=== PATIENT | female | born 1990 | race Two or more races ===

== ENCOUNTER 2022-02-09 21:14 | Emergency (ER) | payer OTHER ==
[~2022-02-09] VITALS: Ht 160 cm; Wt 86.2 kg
[2022-02-09] MEDS ORDERED: SILVER SULFADIAZINE 1 % TOPICAL CREAM 50GM TOP ONE ×2 (21:30→22:58)
[2022-02-09] MEDS ORDERED: HYDROcodone-ACET 10/325MG TAB PO ONE (21:30)
[2022-02-09] MEDS ORDERED: TRAM-297 PO (22:13)
[2022-02-09 23:12] VITALS: BP 142/71
== END 2022-02-09 23:10 | disposition home or self-care (01) ==
LOC: ER 21:14
DX: T25.222A Burn of second degree of left foot, initial encounter (principal); Z79.899 Other long term (current) drug therapy; X12.XXXA Contact with other hot fluids, initial encounter; Y93.89 Activity, other specified; Y92.89 Other specified places as the place of occurrence of the external cause; Y99.0 Civilian activity done for income or pay
CPT/HCPCS: 16020

== ENCOUNTER 2024-12-29 22:55 | Emergency (ER) | payer OTHER ==
[~2024-12-29] VITALS: Ht 160 cm; Wt 68.0 kg
[~2024-12-29 22:55] MED LIST: TRAM-297 PO
[2024-12-29 23:20] LABS: Basophils # (auto) 0.1 10 ^3/uL (0-0.2); Basophils % (auto) 0.6 % (0.0-2.0); Eosinophils # (auto) 0.2 10 ^3/uL (0-0.8); Eosinophils % (auto) 1.9 % (0.0-7.0); Hematocrit 35.8 % (36.0-46.0); Lymphocytes # (auto) 3.4 10 ^3/uL (0.4-5.4); Lymphocytes % (auto) 38.6 % (10.0-50.0); Mean Corpuscular Hemoglobin 30.6 pg (28.0-32.0); Mean Corpuscular Hgb Conc. 33.7 g/dL (32.0-36.0); Mean Corpuscular Volume 90.9 fL (80.0-100.0); Monocytes # (auto) 0.8 10 ^3/uL (0-1.3); Monocytes % (auto) 9.6 % (0.0-12.0); Neutrophils # (auto) 4.3 10 ^3/uL (1.6-8.6); Neutrophils % (auto) 49.3 % (37.0-80.0); Nucleated Red Blood Cells % 0.1 %; Platelet Count (auto) 275 10^3/uL (140-450); Red Blood Cells 3.94 10^6/uL (4.0-5.20); Red Cell Distribution Width 12.3 % (11.8-14.3); White Blood Cell 8.7 10^3/uL (4.4-10.8)
--- NOTE | 2024-12-29 23:20 | ED.PDOC ---
HPI (NEURO) HPI Comments HPI: Poor Historian. 34-year-old female brought in by ambulance for evaluation of a syncopal episode and collapse. There was some minimal twitching witnessed by others without any history of seizures. Patient came back to right away and was not postictal. Patient states now heavy some mild nausea but no other acute symptoms. Past Medical History: Denies any Past Surgical History: Denies any REVIEW OF SYSTEMS: CONSTITUTIONAL: Denies acute: fever, diaphoresis, chills, HEAD: Denies acute: headache, photophobia Eyes: Denies acute: Double vision, vision loss, eye pain, eye discharge. EARS: Denies acute: tinnitus, hearing loss, ear discharge, ear pain, THROAT: Denies acute: sore throat, swelling, difficulty swallowing , pain with swallowing, change in voice. NECK: Denies acute: neck swelling, stiff neck. HEART: Denies acute : chest pain, palpitations, LUNGS: Denies acute: SOB, wheezing, cough, hemoptysis ABDOMEN: Denies acute: abdominal pain, Vomiting, diarrhea, melena , hematemesis, hematochezia SKIN: Denies acute: rash, redness, lesions, itchiness. EXTREMITIES: Denies acute: calf pain, numbness, tingling, weakness, denies pain in extremity. Denies acute: Low back pain. Neuro: Denies acute: focal neurological deficit, motor or sensory focal neurological deficit, tremors, seizure like activity, confusion, change in mental status, loss of bowel or bladder function, cauda equina like symptoms. : Denies acute: dysuria, hematuria, flank pain, increase in urinary frequency. PSYCH: Denies acute: hallucination, suicidal ideation, homicidal ideation. FEMALE: Denies acute: abnormal vaginal bleeding, foul odor, unusual discharge. PHYSICAL EXAM: General: -----no---acute distress, awake and alert. Head: normocephalic, atraumatic. Neck: supple, trachea is midline, no swelling. Cervical spine: Palpation of the posterior midline of the cervical spine reveals no focal swelling, erythema, focal tenderness to palpation. Patient has normal range of motion. Throat: Normal phonation. Eyes:, no erythema, no purulent discharge, no proptosis, no icterus. Heart: regular rate, regular rhythm, no significant murmur appreciated. Lungs: no apparent respiratory distress, Able to speak in full sentences. No wheezing, no rhonchi, no crackles. No stridors Clear to auscultation bilaterally. Abdomen: non tender to palpation, non distended, soft, no guarding, no rebound, + bowel sounds. Neuro: Awake, Alert, oriented to name, self, situation, follows commands GCS=15. Speech is normal. Skin: no petechia, no purpura, no cyanosis, non-pale, not jaundice. Lower extremities: --no - Pitting edema no deformity, no focal swelling, no calf TTP. Makes eye contact. moves all four extremities. Face: no apparent facial droop. No pronator drift. 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 No nystagmus. No nuchal rigidity, Kernig's sign, Brudzinski's sign, no meningeal signs. ED COURSE: Chief Complaint: Syncope Time Seen by MD: 22:56 Primary Care Provider: Demond CAIN Reviewed Notes: Nurses Notes, Medications, Allergies Information Source: Patient, Emergency Med Personnel Mode of Arrival: EMS Past Medical History PAST MEDICAL HISTORY: Denies Surgical History: Denies all surgeries CAGE SHIFT MANAGER History: No Pertinent CAGE SHIFT MANAGER History Family History Family History: No family hx of Cancer, No family hx of DM, No family hx of Heart tristin, No family hx of HTN, No family hx ofKidney tristin, No family hx of Liver tristin, No family hx of Lung tristin, No family hx of Stroke Social History Smoker: Non-Smoker Alcohol: Occasionally Drugs: Denies Drug Use Lives In: Home Was a procedure done? Was a procedure done?: No Differential Diagnosis (SZ) Seizure: Closed Head Injury, Syncope, Other (Seizure) General Weakness: Anemia, CVA, Dehydration, Dysrhythmia, Electrolyte imbalance, Encephalopathy, Guillain-[place], Hypoglycemia, Hypotension, Hypovolemia, Labyrinthitis, Meniere's disease, Myasthenia gravis, Myocardial infarction, Pulmonary embolus, Renal failure, Repiratory failure, TIA, VBI, Vertigo: central, Vertigo: peripheral, Vestibular neuronitis X-Ray, Labs, Meds, VS Vital Signs Date Time Temp Pulse Resp B/P (MAP) Pulse Ox O2 Delivery O2 Flow Rate FiO2 12/30/24 01:33 97.7 76 14 128/83 (98) 100 97.7 12/30/24 01:25 Room Air* 0 21 12/29/24 22:55 98.0 102 16 118/92 (101) 100 98.0 Lab Test 12/30/24 02:20 12/30/24 01:40 12/30/24 01:19 12/29/24 23:09 Range/Units Troponin I High Sensitivity < 3 L < 3 L < 3 L </=34 ng/L Urine Color Light-yellow Yellow Urine Clarity Turbid H Clear Urine pH 6.0 5.0-9.0 Urine Specific Malone 1.010 1.001-1.035 Urine Protein Negative Negative Urine Ketones Negative Negative Urine Blood 1+ H Negative /uL Urine Nitrite Negative Negative Urine Bilirubin Negative Negative Urine Urobilinogen Normal Negative mg/dL Urine Leukocyte Esterase Trace Negative /uL Urine RBC 1 0 - 4 /hpf Urine Microscopic WBC 5 0-5 /HPF Urine Squamous Epithelial Cells Few <5 /hpf Urine Bacteria Many H None Seen /hpf Urine Hyaline Casts Few 0 - 2 /lpf Urine Mucus Few None Seen Urine Glucose Normal Normal mg/dL Urine Test Negative Negative White Blood Count 8.7 4.4-10.8 10^3/uL Red Blood Count 3.94 L 4.0-5.20 10^6/uL Hemoglobin 12.0 L 12.2-16.2 g/dL Hematocrit 35.8 L 36.0-46.0 % Mean Corpuscular Volume 90.9 80.0-100.0 fL Mean Corpuscular Hemoglobin 30.6 28.0-32.0 pg Mean Corpuscular Hemoglobin Concent 33.7 32.0-36.0 g/dL Red Cell Distribution Width 12.3 11.8-14.3 % Platelet Count 275 140-450 10^3/uL Mean Platelet Volume 7.3 6.9-10.8 fL Neutrophils (%) (Auto) 49.3 37.0-80.0 % Lymphocytes (%) (Auto) 38.6 10.0-50.0 % Monocytes (%) (Auto) 9.6 0.0-12.0 % Eosinophils (%) (Auto) 1.9 0.0-7.0 % Basophils (%) (Auto) 0.6 0.0-2.0 % Neutrophils # (Auto) 4.3 1.6-8.6 10 ^3/uL Lymphocytes # (Auto) 3.4 0.4-5.4 10 ^3/uL Monocytes # (Auto) 0.8 0-1.3 10 ^3/uL Eosinophils # (Auto) 0.2 0-0.8 10 ^3/uL Basophils # (Auto) 0.1 0-0.2 10 ^3/uL Nucleated Red Blood Cells 0.1 % Sodium Level 138 136-145 mmol/L Potassium Level 3.5 3.5-5.1 mmol/L Chloride Level 105 98-107 mmol/L Carbon Dioxide Level 24 20-31 mmol/L Anion Gap 9 5-15 Blood Urea Nitrogen 11 9-23 mg/dL Creatinine 0.63 0.550-1.02 mg/dL Glomerular Filtration Rate Calc 120 >90 mL/min BUN/Creatinine Ratio 17.5 10.0-20.0 Serum Glucose 96 74-106 mg/dL Lactic Acid Level 0.9 0.4-2.0 mmol/L Calcium Level 9.0 8.7-10.4 mg/dL Magnesium Level 1.9 1.6-2.6 mg/dL Total Bilirubin 0.3 0.2-1.0 mg/dL Aspartate Amino Transferase (AST) 21 13-40 U/L Alanine Aminotransferase (ALT) 22 7-40 U/L Alkaline Phosphatase 58 46-116 U/L Total Protein 7.0 5.7-8.2 g/dL Albumin 4.3 3.2-4.8 g/dL Current Medications Medications (Trade) Dose Ordered Sig/Linnette Route Start Time Stop Time Status Last Admin Diphenhydramine HCl (Benadryl Injection) 25 mg ONCE ONCE IV 12/30/24 01:45 12/30/24 01:46 DC 12/30/24 01:55 Famotidine (Pepcid Injection) 20 mg ONCE ONCE IV 12/30/24 01:45 12/30/24 01:46 DC 12/30/24 01:55 [facility] [address] [place] [id number] Ph: [phone] DIAGNOSTIC IMAGING Diagnostic Imaging Report : [id number] Signed PATIENT: ESMER GEE ACCT: [id number] UNIT: [id number] : 1990 LOC: ER ROOM / BED: / AGE / SEX: 34 / F ADM STATUS: REG ER SERVICE 26 ORDERING PHYSICIAN: MAKAYLA MEMBRENO DO PROCEDURE(s): HWOCT - HEAD WITHOUT CONTRAST REASON: Syncope and collapse ORDER NUMBER(s): [id number], ACCESSION NUMBER(s): [id number] CT HEAD WITHOUT CONTRAST INDICATION: Syncope and collapse COMPARISON: None TECHNIQUE: CT of the head without intravenous contrast. RADIATION DOSE: CTDIvol: mGy, DLP: mGy*cm FINDINGS: There is no evidence of intracranial hemorrhage, infarct, extra-axial collection, mass effect, midline shift, herniation or hydrocephalus. The ventr icles, sulci and cisterns are normal. The rodríguez-white differentiation is normal. Visualized paranasal sinuses and mastoid air cells are clear. Soft tissues and osseous structures are unremarkable. IMPRESSION: No intracranial abnormality. ATED BY: ALEXANDER SCHREIBER MD DICTATED DATE/TIME: 12/29/242350 SIGNED BY: ALEXANDER SCHREIBER MD SIGNED DATE/TIME: 12/29/242350 CC: [place] [address] Ph: [phone] DIAGNOSTIC IMAGING Diagnostic Imaging Report : [id number] Signed PATIENT: ESMER GEE ACCT: [id number] UNIT: [id number] : 1990 LOC: ER ROOM / BED: / AGE / SEX: 34 / F ADM STATUS: REG ER SERVICE 26 ORDERING PHYSICIAN: MAKAYLA MEMBRENO DO PROCEDURE(s): CXRP - CHEST PORTABLE REASON: Syncope and collapse ORDER NUMBER(s): [id number], ACCESSION NUMBER(s): [id number] CHEST RADIOGRAPH Indication: Syncope and collapse Technique: Single frontal view of the chest was obtained COMPARISON: None FINDINGS: Lines and Tubes: None Lungs: Clear Pleura: No effusion. No pneumothorax. Cardiomediastinal contours: Unremarkable IMPRESSION: No abnormality. ATED BY: ALEXANDER SCHREIBER MD DICTATED DATE/TIME: 12/29/242350 SIGNED BY: ALEXANDER SCHREIBER MD SIGNED DATE/TIME: 12/29/242350 CC: [place] [address] Ph: [phone] DIAGNOSTIC IMAGING Diagnostic Imaging Report : [id number] Signed PATIENT: ESMER GEE ACCT: [id number] UNIT: [id number] : 1990 LOC: ER ROOM / BED: / AGE / SEX: 34 / F ADM STATUS: REG ER SERVICE 26 ORDERING PHYSICIAN: MAKAYLA MEMBRENO DO PROCEDURE(s): CS2 - CERVICAL WITHOUT CONTRAST REASON: Syncope and collapse ORDER NUMBER(s): [id number], ACCESSION NUMBER(s): [id number] EXAM: CT CERVICAL WITHOUT CONTRAST HISTORY: Syncope and collapse COMPARISON: None CTDIvol mGy, DLP mGy*cm. TECHNIQUE: Multiple axial CT images of the spine were obtained using bone algorithm. Axial and coronal reformatting was done. Bone and soft tissue windows were reviewed. FINDINGS: No prevertebral soft tissue abnormality noted. Straightening of the normal cervical lordosis. No listhesis. The cervical vertebral bodies appear unremarkable with no fracture or dislocation. Paraspinal soft tissues appear unremarkable. No disc-osteophyte, spinal canal or neural foraminal stenosis at any of the levels in the cervical spine. IMPRESSION: No cervical spine fracture or dislocation or other significant abnormality. ATED BY: ALEXANDER SCHREIBER MD DICTATED DATE/TIME: 12/29/242353 SIGNED BY: ALEXANDER SCHREIBER MD SIGNED DATE/TIME: 12/29/242353 CC: Time of 1ST Reevaluation: 01:41 Reevaluation 1ST: Resolved Time of 2ND Reevaluation: 01:43 (Urinalysis is still pending) Patient Education/Counseling: Diagnosis, Treatment Family Education/Counseling: Other Comments Patient presented with the above HPI.--syncope and closed head injury----workup was initiated. patient was found with the above mentioned diagnosis. the following medications were ordered: please refer to order lists of meds and tests obtained by myself Dr. Membreno. Patient ED course and VS have been stabilized. Patient has been reassessed in the ED and remained in a stable condition. Pertinent incidental findings were discussed with the patient and/or family. Patient/family voices understanding and is agreeable with plan. Patient has been observed in the ED adequate length of time to insure improvem ent/stability. Escalation of care considered: Consideration of escalation to observation or admission. Patient was road tested and she did well. Patient stated she feels some minimal itchiness at the IV site that happened in the ambulance. I ordered Benadryl and Pepcid. There is no apparent allergic reaction and present on my physical exam. Patient was DISCHARGED home in a stable condition. All the reports of any imaging studies that were ordered by myself were reviewed by myself. Departure 1 Departure Time of Disposition: 01:39 Impression: Primary Impression: Syncope and collapse Additional Impressions: Closed head injury UTI (urinary tract infection) Disposition: 01 HOME / SELF CARE / HOMELESS Condition: Stable Additional Instructions: Additional instructions: You MUST follow-up with your primary care/family doctor in 1 to 2 days. If you are unable to see your primary care/family doctor, please return to our emergency room for re-assessment and re-evaluation in 1 to 2 days. Return to the emergency room here in our facility or to the nearest ER [facility] if your symptoms change or worsen. CONSULTATIONS: you MUST Follow-up for consultation as soon as possible with: urology and cardiology in 1-2 days. Please call for appointment You MUST call the consultants office yourself to make an appointment. You may need to arrange that through your insurance and/or your primary/family doctor. If you are unable to see the documentum consultant in 1 to 2 days, you must return to our emergency room (or any other ER of your choice) for re-assessment and re- evaluation. Adequate fluid hydration. Below is a copy of your radiological report for follow up: [address] [address] Ph: [phone] DIAGNOSTIC IMAGING Diagnostic Imaging Report : [id number] Signed PATIENT: ESMER GEE ACCT: [id number] UNIT: [id number] : 1990 LOC: ER ROOM / BED: / AGE / SEX: 34 / F ADM STATUS: REG ER SERVICE 26 ORDERING PHYSICIAN: MAKAYLA MEMBRENO DO PROCEDURE(s): HWOCT - HEAD WITHOUT CONTRAST REASON: Syncope and collapse ORDER NUMBER(s): [id number], ACCESSION NUMBER(s): [id number] CT HEAD WITHOUT CONTRAST INDICATION: Syncope and collapse COMPARISON: None TECHNIQUE: CT of the head without intravenous contrast. RADIATION DOSE: CTDIvol: mGy, DLP: mGy*cm FINDINGS: There is no evidence of intracranial hemorrhage, infarct, extra-axial collection, mass effect, midline shift, herniation or hydrocephalus. The ventricles, sulci and cisterns are normal. The rodríguez-white differentiation is normal. Visualized paranasal sinuses and mastoid air cells are clear. Soft tissues and osseous structures are unremarkable. IMPRESSION: No intracranial abnormality. ATED BY: ALEXANDER SCHREIBER MD DICTATED DATE/TIME: 12/29/242350 SIGNED BY: ALEXANDER SCHREIBER MD SIGNED DATE/TIME: 12/29/242350 CC: [place] [address] Ph: [phone] DIAGNOSTIC IMAGING Diagnostic Imaging Report : [id number] Signed PATIENT: ESMER GEE ACCT: [id number] UNIT: [id number] : 1990 LOC: ER ROOM / BED: / AGE / SEX: 34 / F ADM STATUS: REG ER SERVICE 26 ORDERING PHYSICIAN: MAKAYLA MEMBRENO DO PROCEDURE(s): CXRP - CHEST PORTABLE REASON: Syncope and collapse ORDER NUMBER(s): [id number], ACCESSION NUMBER(s): [id number] CHEST RADIOGRAPH Indication: Syncope and collapse Technique: Single frontal view of the chest was obtained COMPARISON: None FINDINGS: Lines and Tubes: None Lungs: Clear Pleura: No effusion. No pneumothorax. Cardiomediastinal contours: Unremarkable IMPRESSION: No abnormality. ATED BY: ALEXANDER SCHREIBER MD DICTATED DATE/TIME: 12/29/242350 SIGNED BY: ALEXANDER SCHREIBER MD SIGNED DATE/TIME: 12/29/242350 CC: [place] [address] Ph: [phone] DIAGNOSTIC IMAGING Diagnostic Imaging Report : [id number] Signed PATIENT: ESMER GEE ACCT: [id number] UNIT: [id number] : 1990 LOC: ER ROOM / BED: / AGE / SEX: 34 / F ADM STATUS: REG ER SERVICE 26 ORDERING PHYSICIAN: MAKAYLA MEMBRENO DO PROCEDURE(s): CS2 - CERVICAL WITHOUT CONTRAST REASON: Syncope and collapse ORDER NUMBER(s): [id number], ACCESSION NUMBER(s): [id number] EXAM: CT CERVICAL WITHOUT CONTRAST HISTORY: Syncope and collapse COMPARISON: None CTDIvol mGy, DLP mGy*cm. TECHNIQUE: Multiple axial CT images of the spine were obtained using bone algorithm. Axial and coronal reformatting was done. Bone and soft tissue windows were reviewed. FINDINGS: No prevertebral soft tissue abnormality noted. Straightening of the normal cervical lordosis. No listhesis. The cervical vertebral bodies appear unremarkable with no fracture or dislocation. Paraspinal soft tissues appear unremarkable. No disc-osteophyte, spinal canal or neural foraminal stenosis at any of the levels in the cervical spine. IMPRESSION: No cervical spine fracture or dislocation or other significant abnormality. ATED BY: ALEXANDER SCHREIBER MD DICTATED DATE/TIME: 12/29/242353 SIGNED BY: ALEXANDER SCHREIBER MD SIGNED DATE/TIME: 12/29/242353 CC: e-Prescriptions Nitrofurantoin Monohydrate Mac (Macrobid) 100 Mg Cap 100 MG PO BID for 7 Days, #14 CAP Prov: MAKAYLA MEMBRENO DO 12/30/24 Discharged With: Self Critical Care Note Critical Care Time?: Yes Heart Score Heart Score: Heart Score Response (Comments) Value History N/A 0 EKG N/A 0 Age N/A 0 Risk Factors N/A 0 Troponin N/A 0 Total 0 MAKAYLA MEMBRENO DO December 29, 2024 23:20
[2024-12-29 23:41] LABS: Alanine Aminotransferase 22 U/L (7-40); Albumin 4.3 g/dL (3.2-4.8); Alkaline Phosphatase 58 U/L (46-116); Anion Gap 9 (5-15); Aspartate Aminotransferase 21 U/L (13-40); BUN/Creatinine Ratio 17.5 (10.0-20.0); Blood Urea Nitrogen 11 mg/dL (9-23); Carbon Dioxide 24 mmol/L (20-31); Chloride 105 mmol/L (98-107); Glucose 96 mg/dL (74-106); Magnesium 1.9 mg/dL (1.6-2.6); Potassium 3.5 mmol/L (3.5-5.1); Sodium 138 mmol/L (136-145)
[2024-12-29] MEDS: ONDANSETRON HCL 4 MG/2 ML VIAL IV ONE (23:46)
[2024-12-29] MEDS: SODIUM CHLORIDE 0.9% 1,000 ML IV ONE (23:46)
[2024-12-29 23:51] LABS: Bilirubin, Total 0.3 mg/dL (0.2-1.0)
--- NOTE | 2024-12-29 23:53 | DVH ---
CT HEAD WITHOUT CONTRAST INDICATION: Syncope and collapse COMPARISON: None TECHNIQUE: CT of the head without intravenous contrast. RADIATION DOSE: CTDIvol: mGy, DLP: mGy*cm FINDINGS: There is no evidence of intracranial hemorrhage, infarct, extra-axial collection, mass effect, midlin e shift, herniation or hydrocephalus. The ventricles, sulci and cisterns are normal. The rodríguez-white d ifferentiation is normal. Visualized paranasal sinuses and mastoid air cells are clear. Soft tissues and osseous structures are unremarkable. IMPRESSION: No intracranial abnormality.
--- NOTE | 2024-12-29 23:53 | DVH ---
CHEST RADIOGRAPH Indication: Syncope and collapse Technique: Single frontal view of the chest was obtained COMPARISON: None FINDINGS: Lines and Tubes: None Lungs: Clear Pleura: No effusion. No pneumothorax. Cardiomediastinal contours: Unremarkable IMPRESSION: No abnormality.
--- NOTE | 2024-12-29 23:57 | DVH ---
EXAM: CT CERVICAL WITHOUT CONTRAST HISTORY: Syncope and collapse COMPARISON: None CTDIvol mGy, DLP mGy*cm. TECHNIQUE: Multiple axial CT images of the spine were obtained using bone algorithm. Axial and coron al reformatting was done. Bone and soft tissue windows were reviewed. FINDINGS: No prevertebral soft tissue abnormality noted. Straightening of the normal cervical lordosis. No list hesis. The cervical vertebral bodies appear unremarkable with no fracture or dislocation. Paraspinal soft tissues appear unremarkable. No disc-osteophyte, spinal canal or neural foraminal stenosis at an y of the levels in the cervical spine. IMPRESSION: No cervical spine fracture or dislocation or other significant abnormality.
[2024-12-30 01:33] VITALS: BP 128/83; PULSE 76; RESP 14; TEMP 97.7; O2SAT 100
[2024-12-30] MEDS: diphenhdrAMINE HCL 50 MG/1 ML VL IV ONE (01:55)
[2024-12-30] MEDS: FAMOTIDINE (10MG/ML) 2ML VL IV ONE (01:55)
[2024-12-30 02:34] LABS: Urine Bacteria MANY /hpf (None Seen); Urine Blood 1+ /uL (Negative); Urine Clarity Turbid (Clear); Urine Color Light-Yellow (Yellow); Urine Hyaline Cast FEW /lpf (0 - 2); Urine Mucus FEW (None Seen); Urine Protein, UAD Negative (Negative); Urine Squamous Epithelial Cell FEW /hpf (<5); Urine Urobilinogen Normal (Negative); Urine WBC 5 /HPF (0-5)
[2024-12-30] MEDS ORDERED: NITR-87 PO (02:38)
== END 2024-12-30 02:46 | disposition home or self-care (01) ==
LOC: EDBD 22:55 → ER 22:55
DX: S09.8XXA Other specified injuries of head, initial encounter (principal); R55 Syncope and collapse; N39.0 Urinary tract infection, site not specified; X58.XXXA Exposure to other specified factors, initial encounter; Y93.89 Activity, other specified; Y92.89 Other specified places as the place of occurrence of the external cause; Y99.8 Other external cause status
CPT/HCPCS: 36415; 70450; 71045; 72125; 80053; 81001; 81025; 83605; 83735; 84484; 85025; 96361; 96374; 96375; 99285; J1200; J2405; J3490; J7030